=== PATIENT | female | born 1990 | race African-American/Black ===

== ENCOUNTER 2016-10-22 01:08 | Emergency (ER) | payer OTHER ==
[~2016-10-22] VITALS: Ht 160 cm; Wt 63.5 kg
[~2016-10-22 01:08] MED LIST: ALBU8.5H6 IH; DOCO2CRE TP; VALA10005 PO
[2016-10-22] MEDS ORDERED: PREDNISONE 10 MG TABLET PO ONE (01:45)
[2016-10-22] MEDS ORDERED: DIPHENHYDRAMINE 50 MG/ML VIAL IVP ONE (01:45)
[2016-10-22] MEDS ORDERED: FAMOTIDINE 20 MG/2 ML VIAL IVP ONE (01:45)
[2016-10-22] MEDS ORDERED: EPIN0.3A8 IJ (01:55)
--- NOTE | 2016-10-22 01:56 | PHYS DOC ---
Past Medical History Past Medical History: Asthma, Seizure Additional Past Medical Histor: concussion with seizures following, headaches Past Surgical History: No Surgical History Alcohol Use: None Drug Use: None Adult General Chief Complaint Chief Complaint: ALLERGIC REACTION HPI HPI 26-year-old female presenting to the emergency department with hives on her face after eating shrimp. She feels itchiness of the face and neck. She denies difficulty breathing tongue swelling or oropharyngeal swelling. she denies nausea vomiting. Onset approximately 1 hour prior to arrival. Location face and neck. Duration constant. No alleviating factors. Review of Systems Review of Systems Negative for chest pain shortness of breath tongue or face swelling. She denies nausea or vomiting. All other review of systems is negative unless otherwise noted in history of present illness. Current Medications Current Medications Current Medications Medications (Trade) Dose Ordered Sig/Guru Start Time Stop Time Status Last Admin Dose Admin Diphenhydramine HCl (Benadryl) 25 mg 1X ONCE 10/22/16 01:45 10/22/16 01:46 DC 10/22/16 01:36 25 MG Famotidine (Pepcid) 20 mg 1X ONCE 10/22/16 01:45 10/22/16 01:46 DC 10/22/16 01:36 20 MG Prednisone (Prednisone) 50 mg 1X ONCE 10/22/16 01:45 10/22/16 01:46 DC 10/22/16 01:37 50 MG Allergies Allergies Allergies Coded Allergies Type Severity Reaction Last Updated Verified cefaclor Allergy Intermediate Hives 11/12/13 Yes Physical Exam Physical Exam Constitutional: Well developed, well nourished, no acute distress, non-toxic appearance. [] HENT: Normocephalic, atraumatic, bilateral external ears normal, oropharynx moist, no oral exudates, nose normal. Patient has 5 mm in diameter hives of the face and neck. No swelling of the tongue male or lips. Eyes: PERRLA, EOMI, conjunctiva normal, no discharge. [] Neck: Normal range of motion, no tenderness, supple, no stridor. [] Cardiovascular:Heart rate regular rhythm, no murmur [] Lungs & Thorax: Bilateral breath sounds clear to auscultation no wheezing present. Abdomen: Bowel sounds normal, soft, no tenderness, no masses, no pulsatile masses. [] Skin: Warm, dry, no erythema, no rash. Hives on the face. Back: No tenderness, no CVA tenderness. [] Extremities: No tenderness, no cyanosis, no clubbing, ROM intact, no edema. [] Neurologic: Alert and oriented X 3, normal motor function, normal sensory function, no focal deficits noted. [] Psychologic: Affect normal, judgement normal, mood normal. [] Current Patient Data Vital Signs Vital Signs Date Time Temp Pulse Resp B/P Pulse Ox O2 Delivery O2 Flow Rate FiO2 10/22/16 02:00 73 16 108/64 100 Room Air 10/22/16 01:14 98.9 98.9 EKG EKG [] Radiology/Procedures Radiology/Procedures [] Course & Med Decision Making Course & Med Decision Making Pertinent Labs and Imaging studies reviewed. (See chart for details) [] 26-year-old female presenting to the emergency department with hives on the face after shellfish ingestion. Initially the patient was well-appearing nondistressed. Vital signs were unremarkable. Physical exam showed no evidence of oropharyngeal or pulmonary involvement. No symptoms of GI involvement. The patient was given prednisone, famotidine, and Benadryl for an allergic reaction. Her symptoms improved on reevaluation. She was in discharged home with an epinephrine pen to follow-up with an impregnating helper for further outpatient workup and care. Dragon Disclaimer Dragon Disclaimer This electronic medical record was generated, in whole or in part, using a voice recognition dictation system. Departure Departure Impression: Primary Impression: Allergic reaction Disposition: HOME, SELF-CARE Condition: STABLE Referrals: NO PCP (PCP) ABDOUL MERIDA MD Patient Instructions: Seafood Allergy Additional Instructions: Thank you for allowing us to participate in your care today. Followup with your primary care physician in 3 days if your symptoms do not improve. If you do not have a primary care provider you can ask for a list of our primary care providers. Return to the emergency department you have any new or concerning findings. This should be evaluated by the primary care physician and any necessary consulting services for continued management within a few days after discharge. Return to emergency room if you have any new or concerning symptoms including but not limited to fever, chills, nausea, vomiting, intractable pain, any new rashes, chest pain, shortness of air, uncontrolled bleeding, difficulty breathing, and/or vision loss. Scripts Epinephrine 0.3 Mg/0.3 Ml Auto.injct0.3 Mg IJ PRN PRN ANAPHYLAXIS #1 Prov:JACINTO AGUAYO MD 10/22/16 JACINTO AGUAYO MD Oct 22, 2016 01:56
[2016-10-22 02:00] VITALS: BP 108/64
== END 2016-10-22 02:04 | disposition home or self-care (01) ==
LOC: ER 01:08
DX: T78.1XXA Other adverse food reactions, not elsewhere classified, initial encounter (principal); L50.9 Urticaria, unspecified; J45.909 Unspecified asthma, uncomplicated; Z88.8 Allergy status to other drugs, medicaments and biological substances; X58.XXXA Exposure to other specified factors, initial encounter
CPT/HCPCS: 96374; 96375; 99284; J1200; J7512; S0028

== ENCOUNTER 2016-12-22 07:52 | Emergency (ER) | payer OTHER ==
[~2016-12-22] VITALS: Ht 162.6 cm; Wt 63.5 kg
[~2016-12-22 07:52] MED LIST changes: +EPIN0.3A8 IJ
[2016-12-22 08:01] VITALS: BP 125/71
[2016-12-22] MEDS ORDERED: valACYclovir 500 MG TABLET. PO ONE (08:30)
[2016-12-22] MEDS ORDERED: PRED50TA PO (08:30)
[2016-12-22] MEDS ORDERED: DIPH25CA58 PO (08:30)
[2016-12-22] MEDS ORDERED: DIPHENHYDRAMINE HCL 25 MG CAPSULE PO ONE (08:30)
[2016-12-22] MEDS ORDERED: VALA1000 PO (08:30)
[2016-12-22] MEDS ORDERED: PREDNISONE 20 MG TABLET PO ONE (08:30)
[2016-12-22] MEDS ORDERED: TRIA15OI TP (08:30)
--- NOTE | 2016-12-22 08:30 | PHYS DOC ---
Past Medical History Past Medical History: Asthma, Seizure Additional Past Medical Histor: concussion with seizures following, headaches Past Surgical History: No Surgical History Alcohol Use: None Drug Use: None Adult General Chief Complaint Chief Complaint: SKIN RASH/ABSCESS HPI HPI Patient is a 26 year old female with history of asthma who presents today with a rash on her right shelley that began this morning, patient describes the rash as itchy and burning. Patient denies any fever. Denies any previous history of shingles. Review of Systems Review of Systems Constitutional: See history of present illness Eyes: Denies change in visual acuity, redness, or eye pain [] HENT: Denies nasal congestion or sore throat [] Musculoskeletal: Denies back pain or joint pain [] Integument: Rash on the chin Neurologic: Denies headache, focal weakness or sensory changes [] Endocrine: Denies polyuria or polydipsia [] Allergies Allergies Allergies Coded Allergies Type Severity Reaction Last Updated Verified cefaclor Allergy Intermediate Hives 11/12/13 Yes Iodinated Contrast Media - Oral and Adverse Reaction Intermediate "anxiety attack" 12/22/16 Yes Physical Exam Physical Exam Constitutional: Well developed, well nourished, no acute distress, non-toxic appearance. [] HENT: Normocephalic, atraumatic, bilateral external ears normal, oropharynx moist, no oral exudates, nose normal. [] Skin: Right lateral chin with a grouped clustered fluid filled rash. This rash is suspicious for shingles. Back: No tenderness, no CVA tenderness. [] Extremities: No tenderness, no cyanosis, no clubbing, ROM intact, no edema. [] Neurologic: Alert and oriented X 3, normal motor function, normal sensory function, no focal deficits noted. [] Psychologic: Affect normal, judgement normal, mood normal. [] Current Patient Data Vital Signs Vital Signs Date Time Temp Pulse Resp B/P Pulse Ox O2 Delivery O2 Flow Rate FiO2 12/22/16 08:01 98.4 65 16 99 Room Air 98.4 EKG EKG [] Radiology/Procedures Radiology/Procedures [] Course & Med Decision Making Course & Med Decision Making Pertinent Labs and Imaging studies reviewed. (See chart for details) Patient has a rash on the right chin suspicions of shingles. She was discharged with valacyclovir prednisone and Benadryl. Provided a logging crew foreman for follow- up if symptoms continue in 2 weeks. Dragon Disclaimer Dragon Disclaimer This electronic medical record was generated, in whole or in part, using a voice recognition dictation system. Departure Departure Impression: Primary Impression: Shingles Disposition: 01 HOME, SELF-CARE Condition: STABLE Referrals: UNKNOWN PCP NAME (PCP) APRIL GORE MD Please follow up with the provided logging crew foreman in 2 weeks Patient Instructions: Shingles, [id number] Additional Instructions: You were seen for a rash suspicious for shingles. This is typically a viral illness. Take the prescribed medicines as ordered. Keep the area clean and dry. Monitor the area to make sure it does not get infected. If it starts draining yellow purulent material and becomes red and warm those are signs of infection you need to return to the ED. Follow-up with the provided logging crew foreman in 2 weeks if symptoms do not improve. Scripts Triamcinolone Acetonide (Triamcinolone Acetonide 0.1% Oint)15 Gm Oint...g.1 Valerie TP BID WOUND CARE #1 TUBE MIX WITH EUCERIN DIRECTED BY PHYSICIAN Prov:JIMBO LOPEZ APRN 12/22/16 Diphenhydramine Hcl (Benadryl)25 Mg Capsule1 Cap PO Q4-6HRS PRN RASH #30 CAP Ref 1 Prov:JIMBO LOPEZ APRN 12/22/16 Prednisone 50 Mg Tablet1 Tab PO DAILY #5 TAB Prov:JIMBO LOPEZ APRN 12/22/16 Valacyclovir Hcl (Valacyclovir)1,000 Mg Tablet1 Tab PO TID #21 TAB Ref 3 Prov:JIMBO LOPEZ APRN 12/22/16 Problem Qualifiers Primary Impression: Shingles Herpes zoster complications: without complications Qualified Code: B02.9 - Zoster without complications JIMBO LOPEZ APRN Dec 22, 2016 08:30
== END 2016-12-22 08:43 | disposition home or self-care (01) ==
LOC: ER 07:52
DX: B02.9 Zoster without complications (principal); J45.909 Unspecified asthma, uncomplicated; Z91.041 Radiographic dye allergy status; Z88.1 Allergy status to other antibiotic agents
CPT/HCPCS: 99284; J7512; Q0163

== ENCOUNTER 2017-06-01 11:23 | Emergency (ER) | payer OTHER ==
[~2017-06-01] VITALS: Ht 162.6 cm; Wt 63.5 kg
[~2017-06-01 11:23] MED LIST changes: +DIPH25CA58 PO; +PRED50TA PO; +TRIA15OI TP; +VALA1000 PO
[2017-06-01 11:35] VITALS: BP 150/75
--- NOTE | 2017-06-01 12:03 | PHYS DOC ---
Past Medical History Past Medical History: Asthma, Seizure Additional Past Medical Histor: concussion with seizures following, headaches Past Surgical History: No Surgical History Alcohol Use: None Drug Use: None Adult General Chief Complaint Chief Complaint: PELVIC PAIN [facility] HPI Patient is a 26 year old female presents to the emergency department stating that she has been having dark concentrated urine. She states that she's been having lower abdominal pain with back pain. She denies any vaginal discharge. She states that she has had a nausea feeling however has not vomited. Patient states that she's been drinking like 3 or 4 bottles of water a day. Patient states that she does not work outside she does work inside in an air- conditioned facility. Patient denies any possibility of being . Review of Systems Review of Systems Constitutional: Denies fever or chills [] Eyes: Denies change in visual acuity, redness, or eye pain [] HENT: Denies nasal congestion or sore throat [] Respiratory: Denies cough or shortness of breath [] Cardiovascular: No additional information not addressed in HPI [] GI: Denies abdominal pain, vomiting, bloody stools or diarrhea. Complaint of nausea : dysuria denies hematuria [] Musculoskeletal: Denies back pain or joint pain [] Integument: Denies rash or skin lesions [] Neurologic: Denies headache, focal weakness or sensory changes [] Endocrine: Denies polyuria or polydipsia [] Allergies Allergies Allergies Coded Allergies Type Severity Reaction Last Updated Verified cefaclor Allergy Intermediate Hives 11/12/13 Yes Iodinated Contrast- Oral and IV Dye Adverse Reaction Intermediate "anxiety attack" 12/22/16 Yes Physical Exam Physical Exam Constitutional: Well developed, well nourished, no acute distress, non-toxic appearance. [] HENT: Normocephalic, atraumatic, bilateral external ears normal, oropharynx moist, no oral exudates, nose normal. [] Eyes: PERRLA, EOMI, conjunctiva normal, no discharge. [] Neck: Normal range of motion, no tenderness, supple, no stridor. [] Cardiovascular:Heart rate regular rhythm, no murmur [] Lungs & Thorax: Bilateral breath sounds clear to auscultation [] Skin: Warm, dry, no erythema, no rash. [] Back: No tenderness, no CVA tenderness. [] Extremities: No tenderness, no cyanosis, no clubbing, ROM intact, no edema. [] Neurologic: Alert and oriented X 3, normal motor function, normal sensory function, no focal deficits noted. [] Psychologic: Affect normal, judgement normal, mood normal. [] Current Patient Data Vital Signs Vital Signs Date Time Temp Pulse Resp B/P (MAP) Pulse Ox O2 Delivery O2 Flow Rate FiO2 06/01/17 11:35 98.5 74 19 150/75 (100) 95 Room Air 98.5 Lab Values Laboratory Tests Test 06/01/17 10:48 06/01/17 11:35 POC Urine HCG, Qualitative Hcg negative (Negative) Urine Collection Type Unknown Urine Color Nallely Urine Clarity Clear Urine pH 6.0 Urine Specific [place] 1.025 Urine Protein Negative mg/dL (NEG-TRACE) Urine Glucose (UA) Negative mg/dL (NEG) Urine Ketones (Stick) Negative mg/dL (NEG) Urine Blood Negative (NEG) Urine Nitrite Positive (NEG) Urine Bilirubin Negative (NEG) Urine Urobilinogen Dipstick 0.2 mg/dL (0.2 mg/dL) Urine Leukocyte Esterase Small (NEG) Urine RBC Occ /HPF (0-2) Urine WBC 1-4 /HPF (0-4) Urine Squamous Epithelial Cells Mod /LPF Urine Bacteria Few /HPF (0-FEW) Urine Mucus Mod /LPF EKG EKG [] Radiology/Procedures Radiology/Procedures [] Course & Med Decision Making Course & Med Decision Making Pertinent Labs and Imaging studies reviewed. (See chart for details) Urine was positive for urinary tract infection as a had leukocyte Estrace noted. Patient will be placed on Macrobid one tablet twice day for the next 7 days. Recommended plenty of fluids such as water and cranberry juice. Also recommended her to avoid cranberry juice cocktail, carbonated beverages, caffeine, alcohol, and citrus fruits disease are considered irritants to the bladder. Patient was encouraged to use Tylenol or ibuprofen for pain and discomfort. Patient will be discharged home in stable condition signs and symptoms to return back to the emergency department as been provided. Patients questions were all answered at patient's bedside. [] Dragon Disclaimer Dragon Disclaimer This electronic medical record was generated, in whole or in part, using a voice recognition dictation system. Departure Departure Impression: Primary Impression: Urinary tract infection Disposition: HOME, SELF-CARE Condition: STABLE Referrals: UNKNOWN PCP NAME (PCP) Patient Instructions: Urinary Tract Infection, [id number] Additional Instructions: Activity as tolerated. Medications as prescribed. Tylenol or ibuprofen for pain and discomfort. Drink plenty of fluids such as water and cranberry juice. Avoid cranberry juice cocktail, carbonated beverages, caffeine, alcohol, and citrus fruits as these are considered irritants to the bladder. Follow-up through primary care physician in the next 7-10 days to make sure you cleared the infection. Return back to emergency prior signs symptoms of become worse. Scripts Nitrofurantoin Monohyd/M-Cryst (MACROBID 100 MG CAPSULE) 100 Mg Capsule 1 CAP PO BID, #14 CAP Prov: VENICE HARGROVE APRN 06/01/17 VENICE HARGROVE APRN Jun 01, 2017 12:03
[2017-06-01 12:12] LABS: BILIRUBIN,URINE NEGATIVE (NEG); GLUCOSE,URINE NEGATIVE (NEG); NITRITE,URINE POSITIVE (NEG); PROTEIN,URINE NEGATIVE (NEG-TRACE); UROBILINOGEN,URINE 0.2 mg/dL (0.2 mg/dL)
[2017-06-01 12:36] LABS: BACTERIA,URINE FEW /HPF (0-FEW); RBC,URINE OCC /HPF (0-2); SQUAMOUS EPITHELIAL CELL,UR MOD /LPF
[2017-06-01] MEDS ORDERED: NITR100C62 PO (12:45)
== END 2017-06-01 12:55 | disposition home or self-care (01) ==
LOC: ER 11:23
DX: N39.0 Urinary tract infection, site not specified (principal); J45.909 Unspecified asthma, uncomplicated; Z88.8 Allergy status to other drugs, medicaments and biological substances; Z91.041 Radiographic dye allergy status
CPT/HCPCS: 81001; 81025; 87086; 99284

== ENCOUNTER 2017-06-16 13:53 | Emergency (ER) | payer OTHER ==
[~2017-06-16] VITALS: Ht 162.6 cm; Wt 64.9 kg
[~2017-06-16 13:53] MED LIST changes: +NITR100C62 PO
[2017-06-16] MEDS ORDERED: oxyCODONE/APAP 5/325 1 TAB TABLET PO ONE (15:15)
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
[2017-06-16 15:58] VITALS: BP 118/67
--- NOTE | 2017-06-17 07:43 | RAD ---
Cervical spine 3 views June 16, 2017 Clinical indication: Right-sided neck pain. No known injury. Comparison: None. Findings: There is normal cervical alignment to C7-T1, below is limited by overlying soft tissues. No acute cervical spine fracture or subluxation. Vertebral body heights are maintained. No significant prevertebral soft tissue thickening. Impression: No acute cervical spine fracture or subluxation.
== END 2017-06-16 16:20 | disposition home or self-care (01) ==
LOC: ER 13:53
DX: M43.6 Torticollis (principal); R50.9 Fever, unspecified; J45.909 Unspecified asthma, uncomplicated; Z88.8 Allergy status to other drugs, medicaments and biological substances; Z91.041 Radiographic dye allergy status
CPT/HCPCS: 72040; 81025; 99284

== ENCOUNTER 2018-07-18 23:09 | Emergency (ER) | payer SELFPAY ==
[~2018-07-18] VITALS: Ht 162.6 cm; Wt 64.4 kg
[2018-07-18 23:12] VITALS: BP 126/62
[2018-07-18] MEDS: DIPHTH,PERTUSS(ACELL),TET TOX 0.5 ML DISP.SYRIN. VAX IM ONE (23:36)
[2018-07-19] MEDS ORDERED: DICL50TA4 PO (00:18)
[2018-07-19] MEDS ORDERED: AMOX875T PO (00:22)
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
--- NOTE | 2018-07-19 06:36 | RAD ---
Indication: Swelling of the middle finger. Middle finger pain status post punching a wall TECHNIQUE: Multiple views of the middle finger COMPARISON: None FINDINGS/ impression: No acute fracture or dislocation. Mild diffuse swelling of third finger. No arthritic changes. Electronically signed by: Phuc Cornejo DO (07/19/2018 6:32 AM) [facility]
== END 2018-07-19 00:30 | disposition home or self-care (01) ==
LOC: ER 23:09
DX: S60.031A Contusion of right middle finger without damage to nail, initial encounter (principal); H66.91 Otitis media, unspecified, right ear; J45.909 Unspecified asthma, uncomplicated; Z88.1 Allergy status to other antibiotic agents; Z91.041 Radiographic dye allergy status; W23.1XXA Caught, crushed, jammed, or pinched between stationary objects, initial encounter; Y93.89 Activity, other specified; Y92.89 Other specified places as the place of occurrence of the external cause; Y99.8 Other external cause status
CPT/HCPCS: 73140; 99284